=== PATIENT | male | born 1965 | race Caucasian/White ===

== ENCOUNTER → 2016-11-28 | Outpatient (CLI) | payer OTHER | END | disposition home or self-care (01) | LOC: RAD 11-27 13:00 | DX: N45.3 Epididymo-orchitis (principal) | CPT/HCPCS: 76870 ==

== ENCOUNTER → 2017-03-12 | Outpatient (CLI) | payer SELFPAY ==
[~2017-03-12] MED LIST: DOXYCYCLINE HY100 M3 PO; IMITREX50 MG PO; PERCOCET 5/31 TABLET PO; PREDNISONE20 MG PO
== END | disposition home or self-care (01) ==
LOC: RAD 13:55
DX: R93.8 Abnormal findings on diagnostic imaging of other specified body structures (principal)
CPT/HCPCS: 76870

== ENCOUNTER 2017-03-24 05:27 | Day surgery (SDC) | payer SELFPAY ==
[~2017-03-24] VITALS: Ht 188 cm; Wt 91.0 kg
[2017-03-24 06:16] VITALS: BP 129/82
[2017-03-24 11:35] VITALS: BP 150/103
[2017-03-24 12:50] VITALS: BP 134/82
== END 2017-03-24 12:50 | disposition home or self-care (01) ==
LOC: SDC 05:27
PROC: 0VTB0ZZ Resection of Left Testis, Open Approach (ICD-10-PCS; principal; 2017-03-24)
DX: C62.90 Malignant neoplasm of unspecified testis, unspecified whether descended or undescended (principal); K21.9 Gastro-esophageal reflux disease without esophagitis; Z85.038 Personal history of other malignant neoplasm of large intestine
CPT/HCPCS: 88309; J0690; J1100; J1170; J1580; J2250; J2405; J3010; S0020

== ENCOUNTER → 2017-04-21 | Outpatient (CLI) | payer SELFPAY | END | disposition home or self-care (01) | LOC: RAD 08:28 | DX: C62.92 Malignant neoplasm of left testis, unspecified whether descended or undescended (principal); Z90.49 Acquired absence of other specified parts of digestive tract | CPT/HCPCS: 71260; 74177 ==